=== PATIENT | male | born 1945 | race Caucasian/White ===

== ENCOUNTER 2016-12-26 08:50 | Inpatient (IN) | payer MEDICARE, OTHER ==
[2016-12-03 11:08] VITALS: BMI 37.0
--- NOTE | 2016-12-03 11:47 | PAT Medication Instructions ---
Service Date Dec 03, 2016. Current Home Medication List Acetaminophen (Tylenol), 2 TAB PO Q6 PRN for Pain or Fever Amlodipine/Benazepril (Lotrel 5MG/20MG), 1 CAP PO QAM Aspirin (Aspirin Ec), 81 MG PO QAM Atenolol (Tenormin), 50 MG PO QAM Tamsulosin Hcl (Flomax), 0.4 MG PO Q2D Medication Instructions For Your Scheduled Surgery - Hold the following medications the morning of surgery: Amlodipine/Benazepril (Lotrel 5MG/20MG), 1 CAP PO QAM - Take the following medications the morning of surgery with a sip of water OTHERWISE NOTHING TO EAT OR DRINK AFTER MIDNIGHT: Acetaminophen (Tylenol), 2 TAB PO Q6 PRN for Pain or Fever (may take if needed up to 4 hours prior to surgery) Aspirin (Aspirin Ec), 81 MG PO QAM Atenolol (Tenormin), 50 MG PO QAM Tamsulosin Hcl (Flomax), 0.4 MG PO Q2D - Take the following medications as scheduled the night before surgery: Acetaminophen (Tylenol), 2 TAB PO Q6 PRN for Pain or Fever If you have any questions please call us at [phone] or [phone] or [phone]
[2016-12-03 12:30] LABS: BASO % 0.2 %; BASO ABS # 0.01 K/uL (0-0.2); COMPLETE YES; HEMATOCRIT 40.7 % (42-52); IG% 0.4 %; LYMPH % 29.4 %; LYMPH ABS # 1.59 K/uL (1.2-3.4); MEAN CELL VOLUME 89.1 fL (80-100); MEAN CORPUSCULAR HEMOGLOBIN 32.8 pg (25-34); MEAN CORPUSCULAR HGB CONC 36.9 g/dl (32-36); MEAN PLATELET VOLUME 11.1 fL (7.4-10.4); PLATELET COUNT 120 K/uL (130-400); RED BLOOD COUNT 4.57 M/uL (4.7-6.1); WHITE BLOOD COUNT 5.41 K/uL (4.8-10.8)
[2016-12-03 12:38] LABS: URINE APPEARANCE CLEAR (CLEAR); URINE BILIRUBIN NEG (NEG); URINE COLOR DK YELLOW; URINE NITRITE NEG (NEG); URINE SPECIFIC GRAVITY 1.025 (1.000-1.030); UROBILINOGEN NEG (NEG); ZZUR CULT IF INDIC CLEAN CATCH NO
[2016-12-03 12:39] LABS: PROTHROMBIN TIME (PATIENT) 10.9 SECONDS (9.0-12.0)
[2016-12-03 12:45] LABS: ESTIMATED AVERAGE GLUCOSE 148 mg/dl; HA1C FLAG Normal (Normal)
--- NOTE | 2016-12-03 12:52 | DIAGNOSTIC IMAGING REPORT ---
TWO VIEW CHEST CLINICAL HISTORY: Preoperative examination. FINDINGS: PA and lateral chest radiographs are obtained. No prior studies are available for comparison at the time of dictation. The heart is mildly enlarged and there is atherosclerotic calcification of the thoracic aorta. The pulmonary vasculature is noncongested. Nonspecific interstitial thickening is noted. The lungs and pleural spaces are clear. There is no pneumothorax. The skeletal structures are osteopenic. Degenerative change is seen throughout the thoracic spine. IMPRESSION: No active disease in the chest. Electronically signed by: Seth Marin M.D. 12/03/2016 12:51 PM Dictated Date/Time: 12/03/2016 12:50 PM
[2016-12-03 12:53] LABS: MANUAL MICROSCOPIC REQUIRED? NO; REVIEW REQ? NO
[2016-12-03 13:41] LABS: CREATININE 0.98 mg/dl (0.60-1.40)
[2016-12-03 13:42] LABS: CALCIUM 8.8 mg/dl (8.5-10.1); POTASSIUM 3.7 mmol/L (3.5-5.1)
--- NOTE | 2016-12-25 11:44 | HISTORY & PHYSICAL EXAMINATION ---
DATE OF ADMISSION: 12/26/2016 CHIEF COMPLAINT: Right knee pain. HISTORY OF PRESENT ILLNESS: The patient is a 71-year-old male with known osteoarthritis about his right knee. He had a recent corticosteroid injection with minimal relief. Due to ongoing pain and disability, he now desires to proceed with right total knee arthroplasty. PAST MEDICAL HISTORY: Significant for hypertension, prostate cancer, kidney stones, acid reflux, obesity. PAST SURGICAL HISTORY: Lithotripsy, carpal tunnel, prostate radiation, tonsils and adenoids. MEDICATIONS: Meloxicam 15 mg daily, Flomax 0.4 mg daily, Lotrel 5/20 daily, atenolol 50 mg daily, aspirin 81 mg daily. ALLERGIES: No known drug allergies. SOCIAL HISTORY AND REVIEW OF SYSTEMS: Noncontributory. PHYSICAL EXAMINATION: GENERAL: Well-nourished, well-developed, obese male who appears his stated age. HEENT: Normocephalic, atraumatic, extraocular movements intact, oropharynx pink and moist. NECK: Supple without adenopathy. LUNGS: Clear to auscultation bilaterally. HEART: Regular rate and rhythm. ABDOMEN: Soft, nontender, nondistended, obese. EXTREMITIES: The upper extremities are within normal limits. The right knee has a slight varus alignment. He complains primarily of medial compartment pain. His range of motion is from 0-120 degrees. X-RAYS: X-rays were reviewed. He has a varus aligned knee. He has near bone on bone arthritis of the medial compartment with evidence of subchondral sclerosis. There is mild degenerative change about the patellofemoral joint. ASSESSMENT: Right knee degenerative joint disease. PLAN: Risks versus benefits were discussed. Consent was obtained. The patient's primary care physician is Dr. Corbin. We will proceed with right total knee arthroplasty upon preoperative workup and medical clearance.
[2016-12-26] VITALS (7 sets, daily range): BP systolic 142–165; BP diastolic 68–91; PULSE 69–81; TEMP 36.4–37; O2SAT 92–97; Ht 175.3 cm; Wt 114.1 kg
[~2016-12-26] VITALS: Ht 175.3 cm; Wt 114.1 kg
[2016-12-26] MEDS: ROPIVACAINE 5MG/ML 30 ML 150 MG, BUPIVACAINE/EPINEPHR 0.5% MPF 30 ML, KETOROLAC TROMETH... INFIL SCH ×14 (06:00→11:41)
--- NOTE | 2016-12-26 07:23 | History & Physical Bridge Note ---
H&P Re-Evaluation Bridge Note: I have examined the patient, reviewed the History & Physical and in the interval since the performance of the History & Physical I have noted the following changes of clinical significance: No changes noted
[~2016-12-26 08:50] MED LIST: ACET-1256 PO; ACETAMINOPHEN 500 MG TAB PO SCH; AMLO5CAP2 PO; ASPI81TA28 PO; ATEN50TA8 PO; BUPIVACAINE 0.25% 30 ML VIAL ONE; BUPIVACAINE 0.5 % 5 MG/1 ML PF 10ML VIAL ONE; CEFAZOLIN 2000 MG/60 ML D5W 60 ML IV SCH; CeleBREX 200 MG CAP PO SCH; DEXAMETHASONE 4 MG TAB PO SCH; EpINEphrine INJ 1MG/ML AMP 1 MG/ML AMP ONE; FAMOTIDINE 20 MG TAB PO SCH; FENTANYL CITRATE INJ 50 MCG/1 ML 2 ML VIAL ONE; GABAPENTIN 300 MG CAP PO SCH; LACTATED RINGER'S 1000ML 1,000 ML IV SCH; LACTATED RINGER'S 1000ML 500 ML IV SCH; METOCLOPRAMIDE HCL 10 MG TAB PO SCH; MIDAZOLAM HCL 1 MG/ML 2ML VIAL ONE; TAMS0.4C38 PO
[2016-12-26] MEDS: TRANEXAMIC ACID INJ 1,000 MG in SODIUM CHLORIDE 0.9% 100ML 100 ML IV SCH ×2 (09:46→09:50)
[2016-12-26] MEDS ORDERED: ORTHO JOINT ANESTHETIC ONE (09:51)
[2016-12-26] MEDS ORDERED: POVIDONE-IODINE OP SOLN 30 ML BTL ONE (09:51)
[2016-12-26] MEDS ORDERED: BACITRACIN 50000 UNIT VIAL ONE (09:52)
[2016-12-26] MEDS ORDERED: EpHEDrine SULFATE INJ 50 MG/ML AMP IV PRN (10:15)
[2016-12-26] MEDS ORDERED: LABETALOL HCL IV 5 MG/ML 20ML IV PRN (10:15)
[2016-12-26] MEDS ORDERED: HYDROmorphone INJ 2 MG/ML SYR/VIAL IV PRN (10:15)
[2016-12-26] MEDS ORDERED: MEPERIDINE HCL 25 MG/ML CARP IV PRN (10:15)
[2016-12-26] MEDS ORDERED: ATROPINE SULFATE 0.1 MG/ML 5ML SYR IV PRN (10:15)
[2016-12-26] MEDS ORDERED: PHENYLEPHRINE 100MCG/ML 5ML SYR IV PRN (10:15)
[2016-12-26] MEDS ORDERED: ONDANSETRON INJ 2 MG/ML 2 ML VIAL IV PRN ×2 (10:15→12:15)
[2016-12-26] MEDS ORDERED: FLUMAZENIL 0.1 MG/1 ML 10 ML VIAL IV PRN (10:15)
[2016-12-26] MEDS ORDERED: NALOXONE HCL 0.4 MG/1 ML VIAL/CARP IV PRN (10:15)
[2016-12-26] MEDS ORDERED: FENTANYL CITRATE INJ 50 MCG/1 ML 2 ML VIAL IV PRN (10:15)
[2016-12-26] MEDS ORDERED: MIDAZOLAM HCL 1 MG/ML 2ML VIAL ONE (10:36)
[2016-12-26] MEDS ORDERED: KETAMINE HCL INJ 50 MG/ML 10 ML VIAL ONE (10:41)
[2016-12-26] MEDS ORDERED: LIDOCAINE HCL 2% 2 ML VIAL (20MG/ML) ONE (11:09)
[2016-12-26] MEDS ORDERED: PROPOFOL IV EMULSION 10 MG/ML 20 ML VIAL IV ONE (11:09)
--- NOTE | 2016-12-26 11:29 | [facility] Post Operative Brief Note ---
Immediate Operative Summary Operative Date Dec 26, 2016. Pre-Operative Diagnosis Right knee degenerative joint disease Post-Operative Diagnosis Right knee degenerative joint disease Procedure(s) Performed Right Total Knee Arthroplasty Surgeon Dr. Salazar Defensive Driving Instructor Surgeon(s) Elijah Charles PA-C Estimated Blood Loss 20cc Findings severe oa Specimens A: right knee bone and tissue Complication(s) None Disposition Recovery Room / PACU
[2016-12-26] MEDS ORDERED: ALUMINUM/MAGNESIUM/SIMETH (MAALOX MAX) 30 ML UDC PO PRN (12:15)
[2016-12-26] MEDS ORDERED: MoRPHine SULFATE 4 MG/ML 1 ML CARP\\VIAL IV PRN (12:15)
[2016-12-26] MEDS ORDERED: MoRPHine SULFATE 2 MG/ML CARP IV PRN (12:15)
[2016-12-26] MEDS ORDERED: BISACODYL 10 MG SUPP PR PRN (12:15)
--- NOTE | 2016-12-26 12:30 | OPERATIVE REPORT ---
DATE OF OPERATION: 12/26/2016 PREOPERATIVE DIAGNOSIS: Osteoarthritis, right knee. POSTOPERATIVE DIAGNOSIS: Osteoarthritis, right knee. PROCEDURE: Right total knee arthroplasty. SURGEON: Dr. Salazar. CENTRAL STERILIZATION TECHNICIAN: OWEN Pompa ANESTHESIA: Spinal. COMPLICATIONS: None. IMPLANTS USED: Femoral size 5, tibia size 4, tibial poly 13, and patella size 36. OPERATION AND FINDINGS: Following induction of spinal anesthesia, the patient's right leg was prepped and draped in the usual sterile manner. Limb was exsanguinated with an Esmarch bandage and tourniquet was inflated to 350 mmHg. A longitudinal incision was made anteriorly. Subcutaneous tissue was sharply dissected. Electrocautery was used for hemostasis. Prepatellar bursa was incised and median parapatellar incision was performed. Patella was everted and the knee was flexed. Fat pad was removed to aid in visualization and the anterior and posterior cruciate ligaments were removed. The medial face of the tibia was cleared of soft tissue first with a Bovie and a Real elevator. This tissue was retracted posteriorly using a blunt Hohmann. A Poole retractor was used to expose the synovium above on the anterior aspect of the femur and this was removed down to bone. The PSI guide was placed on the distal femur and two pins were placed anteriorly and kept in position and two additional pins were placed distally and removed. The distal femoral cutting block was placed in position and the distal femoral cut was used in the +0 setting. Next, the cutting block was removed and the femoral 5 block was placed in the distal end of the femur. Care was taken to ensure appropriate external rotation and feeler gauge was used to ensure no notching would occur. The femoral block was centered on the distal femur and in the medial and lateral direction and was fixed using two bone screws. The gold pins were then removed. The oscillating saw was used to create the bone cuts and the distal femoral cutting block was removed and the reciprocating saw was used to further trim the femoral cuts as well as a deep in the area for the trochlear groove. Next, posterior condyle remnants were removed. Following this, a meniscal clamp and knife were utilized to remove the anterior portion of both medial and lateral meniscus. The proximal tibia PSI guide was placed into position and the proximal tibial cutting guide was screwed into position. The extra medullary alignment guide was utilized to ensure appropriate alignment. The proximal tibia was cut and the proximal tibial cutting block was removed and this bone fragment was removed. The appropriate guide was used to perform the notch cut on the distal femur and a lamina media relations coordinator and a cochlear knife were utilized to finish both medial and lateral meniscectomies to remove any remnants of the posterior or anterior cruciate ligaments. Following this, the distal femoral component was impacted into position and blunt Alexis was used to sublux the tibia anteriorly. The proximal tibia was sized and a 4 tibial tray was chosen as the size to be used. This was put into position and appropriate external rotation and a double check with extramedullary alignment guide was performed. The canal for the tibial stem was prepared first with a 17 mm drill and then the punch and a mallet and the trial tibial poly was placed. A 13 was chosen the size to be used. It was brought to extension and the patella was prepared with the patellar reamer. A 36 component was chosen the size to be used. The trial component was placed and knee was taken through a full range of motion and there was found to be no lateral subluxation of the tibia. No lateral release was required. The trials were all removed. The final components were obtained and assembled. Cement was mixed. The knee was thoroughly irrigated and the ortho mix was injected about the knee joint. The final components were cemented into position. After thoroughly suctioning and drying the bone ends, all excess cement was removed. The knee was held in extension while the cement hardened. The wound was irrigated and closed over a Hemovac drain. #1 Vicryl was used to close the extensor mechanism. Subcutaneous tissues closed using 0 Dexon. Skin was closed with pranav. Sterile dressing of Adaptic, 4 x 4's, sterile Webril, and Carlos was applied. The patient tolerated the procedure well. Due to the complex nature of the procedure, the entire surgery was performed with the operational assistance of OWEN Pompa. The assistant hvac mechanic, under direct supervision, was involved in the actual performance of all aspects of the surgical procedure including hemostasis, tissue retraction and incision, instrument management, patient positioning, and wound closure. DISPOSITION: Recovery room stable. I attest to the content of the Intraoperative Record and any orders documented therein. Any exception s are noted below.
--- NOTE | 2016-12-26 12:49 | DIAGNOSTIC IMAGING REPORT ---
RIGHT KNEE 1 OR 2 VIEWS ROUTINE CLINICAL HISTORY: 71 years-old Male presenting with right knee osteoarthritis status post total knee arthroplasty. TECHNIQUE: Frontal and lateral views of the right knee were obtained. COMPARISON: None. FINDINGS: Postsurgical changes of total right knee arthroplasty with patellar resurfacing. Soft tissue and intra-articular emphysema. Surgical drain is in place. No malalignment. No acute fracture. No hardware complication. IMPRESSION: Expected postsurgical changes status post total right knee arthroplasty with patellar resurfacing. Electronically signed by: Nuno Sheppard M.D. 12/26/2016 12:48 PM Dictated Date/Time: 12/26/2016 12:47 PM
--- NOTE | 2016-12-26 12:52 | Anesthesiology Progress Note ---
Anesthesia Post Op Note Date & Time Dec 26, 2016 at 12:50 Vital Signs Pain Intensity: 0 Vital Signs Past 12 Hours Date Time Temp Pulse Resp B/P (MAP) Pulse Ox O2 Delivery O2 Flow Rate FiO2 12/26/16 12:45 71 16 125/74 95 Nasal Cannula 4 12/26/16 12:35 36.2 69 17 136/80 95 Nasal Cannula 4 12/26/16 12:25 67 22 132/80 91 Nasal Cannula 2 12/26/16 12:15 72 17 131/76 91 Nasal Cannula 2 12/26/16 12:05 36.1 78 17 139/78 91 Nasal Cannula 2 12/26/16 09:29 36.5 71 20 162/91 94 Room Air Notes Mental Status: alert / awake / arousable, participated in evaluation Pt Amnestic to Procedure: Yes Nausea / Vomiting: adequately controlled Pain: adequately controlled Airway Patency, RR, SpO2: stable & adequate BP & HR: stable & adequate Hydration State: stable & adequate Neuraxial Anesthesia: was administered, sensory block is resolving Anesthetic Complications: no major complications apparent The patient was a difficult spinal placement and required two attempts. I spoke to him about the slightly increased risk of spinal hematoma in the PACU. I told him to watch for any new numbness, weakness, or incontinence after today and to tell a nurse or go to the ER if any of these symptoms develop.
[2016-12-26] MEDS: D5W AND 1/2NSS + 20MEQ KCL 1,000 ML IV SCH (15:32)
[2016-12-26] MEDS: ACETAMINOPHEN 500 MG TAB PO SCH ×2 (16:17→21:32)
[2016-12-26] MEDS: CEFAZOLIN IV 2,000 MG in DEXTROSE 5% 50ML 50 ML IV SCH (18:35)
[2016-12-26] MEDS: FERROUS GLUCONATE 324 MG TAB PO SCH (18:35)
[2016-12-26] MEDS: OXYCODONE HCL IR 5 MG TAB (IMMEDIATE RELEASE) PO PRN (18:56)
[2016-12-26] MEDS: CeleBREX 200 MG CAP PO SCH (20:35)
[2016-12-26] MEDS: ASPIRIN 81 MG ECTAB PO SCH (20:35)
[2016-12-26] MEDS: DOCUSATE SODIUM 100 MG CAP PO SCH (20:35)
[2016-12-26] MEDS: OXYCODONE HCL 10 MG TABCR (OXYCONTIN) PO SCH (20:36)
[2016-12-27] MEDS: OXYCODONE HCL IR 5 MG TAB (IMMEDIATE RELEASE) PO PRN ×2 (00:20→07:32)
[2016-12-27] MEDS: D5W AND 1/2NSS + 20MEQ KCL 1,000 ML IV SCH ×2 (00:29→10:40)
[2016-12-27] MEDS: CEFAZOLIN IV 2,000 MG in DEXTROSE 5% 50ML 50 ML IV SCH (01:30)
[2016-12-27 03:50] VITALS: BP 144/71; PULSE 67; TEMP 36.5; O2SAT 90
[2016-12-27] MEDS: ACETAMINOPHEN 500 MG TAB PO SCH ×3 (05:38→21:29)
[2016-12-27 06:03] LABS: HEMATOCRIT 39.7 % (42-52); MEAN CELL VOLUME 90.8 fL (80-100); MEAN CORPUSCULAR HEMOGLOBIN 31.6 pg (25-34); MEAN CORPUSCULAR HGB CONC 34.8 g/dl (32-36); MEAN PLATELET VOLUME 11.8 fL (7.4-10.4); PLATELET COUNT 152 K/uL (130-400); RED BLOOD COUNT 4.37 M/uL (4.7-6.1); WHITE BLOOD COUNT 14.31 K/uL (4.8-10.8)
[2016-12-27 06:51] LABS: BUN/CREATININE RATIO 16.6 (10-20); CALCIUM 8.6 mg/dl (8.5-10.1); CREATININE 1.4 mg/dl (0.60-1.40); POTASSIUM 4.3 mmol/L (3.5-5.1)
[2016-12-27 08:12] VITALS: BP 170/91; PULSE 70; TEMP 36.7; O2SAT 93
[2016-12-27] MEDS: CeleBREX 200 MG CAP PO SCH ×2 (08:45→20:27)
[2016-12-27] MEDS: OXYCODONE HCL 10 MG TABCR (OXYCONTIN) PO SCH ×2 (08:45→20:26)
[2016-12-27] MEDS: ASPIRIN 81 MG ECTAB PO SCH ×2 (08:46→20:26)
[2016-12-27] MEDS: AMLODIPINE BESYLATE 5 MG TAB PO SCH (08:46)
[2016-12-27] MEDS: TAMSULOSIN HCL 0.4 MG CAP PO SCH (08:46)
[2016-12-27] MEDS: DOCUSATE SODIUM 100 MG CAP PO SCH ×2 (08:46→20:26)
[2016-12-27] MEDS: MULTIVITAMIN TAB PO SCH (08:46)
[2016-12-27] MEDS: PANTOprazole SOD 40 MG TAB PO SCH (08:46)
[2016-12-27] MEDS: BENAZEPRIL HCL 10 MG TAB PO SCH (08:46)
[2016-12-27] MEDS: FERROUS GLUCONATE 324 MG TAB PO SCH ×3 (08:47→17:45)
--- NOTE | 2016-12-27 08:54 | Orthopedic Progress Note ---
Orthopedic Progress Note Date of Service Dec 27, 2016. Subjective Post OP Day: 1 Reports: feeling well, Denies: chest pain, SOB, nausea / vomiting, light headedness Objective calves soft nontender, N/V intact, dressing C/D/I, A&O x3, toes mobile Date Time Temp Pulse Resp B/P (MAP) Pulse Ox O2 Delivery O2 Flow Rate FiO2 12/27/16 08:12 36.7 70 18 170/91 (117) 93 Room Air 12/27/16 07:37 Room Air 12/27/16 03:50 36.5 67 17 144/71 (95) 90 Room Air 12/27/16 00:30 Room Air 12/26/16 23:13 37.0 75 17 142/73 (96) 92 Room Air 12/26/16 20:37 36.6 76 18 146/68 (94) 92 Room Air 12/26/16 17:15 36.6 78 16 143/78 (99) 95 Nasal Cannula 2.0 12/26/16 16:15 36.5 81 18 165/82 (109) 96 Nasal Cannula 2.0 12/26/16 15:30 Nasal Cannula 2.0 12/26/16 15:15 36.5 81 18 160/81 (107) 97 Nasal Cannula 2.0 12/26/16 14:15 94 Nasal Cannula 4.0 12/26/16 14:15 36.4 69 16 153/84 (107) 94 Nasal Cannula 4.0 12/26/16 14:00 74 19 130/82 95 Nasal Cannula 4 12/26/16 13:45 71 18 134/70 96 Nasal Cannula 4 12/26/16 13:30 66 21 139/79 96 Nasal Cannula 4 12/26/16 13:15 66 23 138/77 96 Nasal Cannula 4 12/26/16 13:00 70 18 138/83 94 Nasal Cannula 4 12/26/16 12:45 71 16 125/74 95 Nasal Cannula 4 12/26/16 12:35 36.2 69 17 136/80 95 Nasal Cannula 4 12/26/16 12:25 67 22 132/80 91 Nasal Cannula 2 12/26/16 12:15 72 17 131/76 91 Nasal Cannula 2 12/26/16 12:05 36.1 78 17 139/78 91 Nasal Cannula 2 12/26/16 09:29 36.5 71 20 162/91 94 Room Air Laboratory Results 24 Hours: Test 12/27/16 05:40 Hematocrit 39.7 % Hemoglobin 13.8 g/dL Assessment & Plan Assessment: POD 1 s/p Right TKA Plan: PT/OT Pt hoping to go to [facility] upon dc if ok with insurance. Inhouse Planning Pain Management: Celebrex, Oxycontin, Morphine, Oxy IR DVT Prophylaxis: TEDs, SCDs, ASA Discharge Planning Discharge Planning: rehab hospital
[2016-12-27] MEDS ORDERED: AMLODIPINE PO SCH (09:00)
[2016-12-27] MEDS ORDERED: BENAZEPRIL PO SCH (09:00)
[2016-12-27 12:00] VITALS: BP 145/79; PULSE 58; TEMP 36.9; O2SAT 91
--- NOTE | 2016-12-27 13:36 | Anesthesiology Progress Note ---
Anesthesia Post Op Note Date & Time Dec 27, 2016 at 13:36 Vital Signs Pain Intensity: 6.5 Vital Signs Past 12 Hours Date Time Temp Pulse Resp B/P (MAP) Pulse Ox O2 Delivery O2 Flow Rate FiO2 12/27/16 12:00 36.9 58 17 145/79 (101) 91 Room Air 12/27/16 08:12 36.7 70 18 170/91 (117) 93 Room Air 12/27/16 07:37 Room Air 12/27/16 03:50 36.5 67 17 144/71 (95) 90 Room Air Notes Mental Status: alert / awake / arousable, participated in evaluation Pt Amnestic to Procedure: Yes Nausea / Vomiting: adequately controlled Pain: adequately controlled Airway Patency, RR, SpO2: stable & adequate BP & HR: stable & adequate Hydration State: stable & adequate Neuraxial Anesthesia: was administered, sensory block resolved Anesthetic Complications: no major complications apparent
[2016-12-27 13:54] VITALS: BP 162/85; PULSE 57; TEMP 36.4; O2SAT 95
[2016-12-27 16:20] VITALS: BP 142/76; PULSE 54; TEMP 36.5; O2SAT 93
[2016-12-27] MEDS: MAGNESIUM HYDROXIDE SUSP 30 ML UDC PO PRN (21:30)
[2016-12-27 23:18] VITALS: BP 132/69; PULSE 61; TEMP 36.9; O2SAT 90
[2016-12-28 00:25] VITALS: O2SAT 96
[2016-12-28] MEDS: ACETAMINOPHEN 500 MG TAB PO SCH ×3 (05:11→21:53)
[2016-12-28 06:33] VITALS: BP 148/75; PULSE 66; TEMP 36.9; O2SAT 90
[2016-12-28] MEDS: OXYCODONE HCL 10 MG TABCR (OXYCONTIN) PO SCH ×2 (07:28→21:04)
[2016-12-28] MEDS: OXYCODONE HCL IR 5 MG TAB (IMMEDIATE RELEASE) PO PRN (07:28)
[2016-12-28] MEDS: MULTIVITAMIN TAB PO SCH (07:29)
[2016-12-28] MEDS: FERROUS GLUCONATE 324 MG TAB PO SCH ×3 (07:29→18:09)
[2016-12-28] MEDS: BENAZEPRIL HCL 10 MG TAB PO SCH (07:29)
[2016-12-28] MEDS: PANTOprazole SOD 40 MG TAB PO SCH (07:29)
[2016-12-28] MEDS: AMLODIPINE BESYLATE 5 MG TAB PO SCH (07:29)
--- NOTE | 2016-12-28 08:49 | Orthopedic Progress Note ---
Orthopedic Progress Note Date of Service Dec 28, 2016. Subjective Post OP Day: 2 Reports: feeling well, Denies: complaints Additional Notes: Doing well this morning, no acute issues overnight. Pain well controlled. Objective AOx3, NAD RLE NVSI +EHL/FHL/TA/GS SILT grossly, CR< 2 seconds +2 DP pulse, compartments soft, dressing CDI Date Time Temp Pulse Resp B/P (MAP) Pulse Ox O2 Delivery O2 Flow Rate FiO2 12/28/16 07:43 Room Air 12/28/16 06:33 36.9 66 16 148/75 (99) 90 Room Air 12/28/16 00:25 96 Room Air 12/27/16 23:18 36.9 61 16 132/69 (90) 90 Room Air 12/27/16 19:40 Room Air 12/27/16 16:20 36.5 54 17 142/76 (98) 93 Room Air 12/27/16 13:54 36.4 57 16 162/85 (110) 95 Room Air 12/27/16 12:00 36.9 58 17 145/79 (101) 91 Room Air Assessment & Plan Assessment: POD 2 s/p Right TKA Plan: WBAT RLE Pain controlled DVT PPX PT/OT Pt hoping to go to [facility] upon dc if ok with insurance. Am Labs Inhouse Planning Pain Management: Celebrex, Oxycontin, Morphine, Oxy IR DVT Prophylaxis: TEDs, SCDs, ASA Discharge Planning Discharge Planning: rehab hospital
[2016-12-28] MEDS: CeleBREX 200 MG CAP PO SCH ×2 (08:52→21:05)
[2016-12-28] MEDS: ASPIRIN 81 MG ECTAB PO SCH ×2 (08:52→21:05)
[2016-12-28] MEDS: DOCUSATE SODIUM 100 MG CAP PO SCH ×2 (08:52→21:06)
[2016-12-28] MEDS ORDERED: CLB200 PO (10:10)
[2016-12-28] MEDS ORDERED: OXYSR10 PO (10:10)
[2016-12-28] MEDS ORDERED: ONDA8TAB6 PO (10:10)
[2016-12-28] MEDS ORDERED: RXC5 PO (10:10)
[2016-12-28] MEDS ORDERED: ASPEC81 PO (10:10)
[2016-12-28] MEDS ORDERED: ACET-24 PO (10:10)
--- NOTE | 2016-12-28 10:12 | Discharge Instructions ---
Discharge Instructions Date of Service Dec 28, 2016. Admission Reason for Admission: Right Knee Osteoarthritis Discharge Discharge Diagnosis / Problem: right knee osteoarthritis Discharge Goals Goal(s): Decrease discomfort, Improve function Activity Recommendations Activity Level: Up Ad Daria Therapies: Physical Therapy, Occupational Therapy Weightbearing Status: Right weightbearing (as tolerated) Shower/Bathe: no limitations Additional Information Patient informed of condition: Yes Advance Directives: Yes DNR: No Level of Care: Acute Rehab Communicable Disease: No Prognosis: Stable Ricci Catheter: No Instructions / Follow-Up Instructions / Follow-Up ACTIVITY RECOMMENDATIONS: SELF CARE INSTRUCTIONS AFTER TOTAL KNEE REPLACEMENT A. You may need to continue a physical therapy program after discharge from the hospital. There are several options available to you. Your doctor will assist you in selecting the best one for you. 1. An out-patient facility 3 times a week for therapy. 2. Home therapy for 1 to 2 weeks with outpatient therapy to follow. 3. Continue working on all exercises taught by physical therapy three times a day for 20 minutes on non-therapy days. Your goals should be to increase the bending of your knee to 90 degrees and beyond and to fully straighten your knee. Ice and elevate knee after exercise. B. Weight as tolerated with a walker or as instructed by your physician. C. It is okay to shower if minimal to no drainage from incision. No Baths. Do not soak wound. D. Make walking a part of your daily routine. Be up as much as comfortable with rest periods throughout the day. Rest with leg elevation is very important. Use the ice wrap frequently for the first 3-4 weeks. E. There are no restrictions on activities. You may ride in a car, shop, participate in commissioning manager and all social activities. F. Wear the long elastic stockings (MOIRA hose) 20 hours a day for one month after surgery. They can be removed several times a day for laundering and when showering. G. Silverlon- This is a large adhesive bandage that contains silver ions. This helps your incision heal by fighting off bacteria and protecting it from the outside environment. You are permitted to shower with this dressing. This will remain on your incision for 7 days and then should be removed. Some visible blood or drainage through the dressing window is normal. If there is significant drainage or leaking noted before the 7 days notify your doctor's office immediately. Once removed, keep incision clean and dry. If there is any drainage or redness noted, please call your surgeon. SPECIAL CARE INSTRUCTIONS: VERY IMPORTANT TO READ AND REVIEW A. Take Aspirin (blood thinning medications) as directed by your doctor. If on Coumadin, have a pro-time (blood test) drawn according to your doctor's instructions. This will tell the doctor how well the Coumadin is thinning your blood. B. There are a few signs you need to watch for after you are home. Call [facility] if you notice any of the followin. Increased severe knee pain. Some pain is expected especially when you exercise. 2. Increased swelling in your leg or knee; pain or swelling of the calf muscle in either lower leg. 3. Any redness or fluid drainage from the incision. 4. Shortness of breath or chest pain. 5. A Temperature of 101 degrees F or greater. C. Please call [facility] at if you have any concerns or questions about your operation or recovery. The doctor or his nurse will return your call promptly. D. You must take antibiotics before dental work, bladder, bowel or other surgery. Your doctor will provide you with a permanent care to carry describing this precaution. FOLLOW UP VISIT: If appointment is not already scheduled: Please call [facility] to make a follow-up appointment for one month after your surgery at . . Current Hospital Diet Patient's current hospital diet: Regular Diet Discharge Diet Recommended Diet: Regular Diet Procedures Procedures Performed: Right Total Knee Arthroplasty Pending Studies Studies pending at discharge: no Laboratory Results Hemoglobin A1c Test 12/03/16 11:55 Range/Units Estimated Average Glucose 148 mg/dl Hemoglobin A1c 6.8 H 4.5-5.6 % Medical Emergencies . Who to Call and When: Medical Emergencies: If at any time you feel your situation is an emergency, please call 911 immediately. . Non-Emergent Contact Non-Emergency issues call your: Surgeon Call Non-Emergent contact if: temperature is above 101, your pain is not controlled, your pain is worsening, wound has increased drainage, wound has increased redness, wound has increased pain . . "Provider Documentation" section prepared by Drew Rasmussen. . Core Measure Problem Core Measures: None
[2016-12-28] MEDS: MAGNESIUM HYDROXIDE SUSP 30 ML UDC PO PRN ×2 (13:21→21:04)
[2016-12-28 15:00] VITALS: BP 116/66; PULSE 55; TEMP 36.3; O2SAT 93
[2016-12-28 23:37] VITALS: BP 153/76; PULSE 67; TEMP 37.1; O2SAT 93
[2016-12-29] MEDS: ACETAMINOPHEN 500 MG TAB PO SCH (05:29)
[2016-12-29 06:52] VITALS: BP 162/71; PULSE 77; TEMP 36.8; O2SAT 92
--- NOTE | 2016-12-29 08:43 | Orthopedic Progress Note ---
Orthopedic Progress Note Date of Service Dec 29, 2016. Subjective Post OP Day: 3 Reports: feeling well, pain controlled w PO medications, Denies: complaints, calf pain Objective calves soft nontender, N/V intact, capillary refill less than 2 sec., dressing C /D/I, A&O x3, toes mobile Date Time Temp Pulse Resp B/P (MAP) Pulse Ox O2 Delivery O2 Flow Rate FiO2 12/29/16 06:52 36.8 77 18 162/71 (101) 92 Room Air 12/29/16 00:05 Room Air 12/28/16 23:37 37.1 67 17 153/76 (101) 93 Room Air 12/28/16 15:43 Room Air 12/28/16 15:00 36.3 55 16 116/66 (83) 93 Room Air Assessment & Plan Assessment: POD 3 s/p Right TKA Plan: WBAT RLE Pain controlled DVT PPX PT/OT Insurance denial of any rehab stay. Will d/c home with home health today. Inhouse Planning Pain Management: Celebrex, Oxycontin, Morphine, Oxy IR DVT Prophylaxis: TEDs, SCDs, ASA Discharge Planning Discharge Planning: home with home health
[2016-12-29] MEDS: OXYCODONE HCL 10 MG TABCR (OXYCONTIN) PO SCH (08:54)
[2016-12-29] MEDS: OXYCODONE HCL IR 5 MG TAB (IMMEDIATE RELEASE) PO PRN (08:56)
[2016-12-29] MEDS: AMLODIPINE BESYLATE 5 MG TAB PO SCH (08:56)
[2016-12-29] MEDS: MULTIVITAMIN TAB PO SCH (08:56)
[2016-12-29] MEDS: ASPIRIN 81 MG ECTAB PO SCH (08:56)
[2016-12-29] MEDS: PANTOprazole SOD 40 MG TAB PO SCH (08:56)
[2016-12-29] MEDS: FERROUS GLUCONATE 324 MG TAB PO SCH (08:57)
[2016-12-29] MEDS: BENAZEPRIL HCL 10 MG TAB PO SCH (08:57)
[2016-12-29] MEDS: CeleBREX 200 MG CAP PO SCH (08:57)
[2016-12-29] MEDS: TAMSULOSIN HCL 0.4 MG CAP PO SCH (08:57)
[2016-12-29] MEDS: DOCUSATE SODIUM 100 MG CAP PO SCH (08:57)
[2016-12-29 10:20] VITALS: BP 162/71; PULSE 77; TEMP 36.8; O2SAT 92
--- NOTE | 2016-12-30 17:23 | DISCHARGE SUMMARY ---
DISCHARGE DIAGNOSIS: Degenerative joint disease, right knee. SECONDARY DIAGNOSES: Hypertension, history of prostate carcinoma, history of renal calculi, gastroesophageal reflux disease and obesity. CONSULTS: None. COMPLICATIONS: None. PROCEDURES: Right total knee arthroplasty performed by Dr. Salazar on 12/26/2016. BRIEF HISTORY: As dictated in history and physical. HOSPITAL SUMMARY: The patient was admitted on the above-noted date and had the above-noted surgery performed which he tolerated well. On his first postoperative day, he was feeling well and had no complaints. Calves were soft, nontender, neurovascularly intact. Dressings were clean, dry and intact. Toes were mobile. Hemoglobin was 13.8 and he was started on physical therapy protocol and continued on DVT prophylaxis and pain management. By his second postoperative day, he was feeling well and had no complaints. He had no acute issues overnight. Pain was controlled. Dressings were clean, dry and intact. He was neurovascularly intact. Vital signs were stable. He was continued on his protocol. The rest of his stay was essentially uneventful and by December 29, he was progressing with his physical therapy and it was felt he could be discharged to home with home health services. For further review, please see chart. LABORATORY AND X-RAY DATA: As per chart. DISCHARGE INSTRUCTIONS: The patient was discharged to home in satisfactory condition on 12/29/2016. DIET: Regular. ACTIVITY: Weightbearing as tolerated right lower extremity. Follow TK instruction sheets and special care instructions as noted. Follow up with Dr. Salazar in 2 weeks. The patient to call for appointment if one has not been made for you. DISCHARGE MEDICATIONS: Acetaminophen 1000 mg p.o. q. 8 hours, aspirin 81 mg p.o. b.i.d. for 30 days, Celebrex 200 mg p.o. b.i.d., Zofran 8 mg p.o. 8 hours p.r.n. nausea, OxyContin 10 mg p.o. q. 12 hours, oxycodone 5-10 mg p.o. q. 4 hours p.r.n. and resume home meds as listed and stop taking previous Tylenol and aspirin dosages.
== END 2016-12-29 12:42 | disposition home health service (06) | DRG 470 ==
LOC: C.ACU 08:50 → C.3E 09:45 → ENRESERV 13:49
PROC: 0SRC0J9 Replacement of Right Knee Joint with Synthetic Substitute, Cemented, Open Approach (ICD-10-PCS; principal; 2016-12-26 10:00)
DX: M17.11 Unilateral primary osteoarthritis, right knee (principal); I10 Essential (primary) hypertension; K21.9 Gastro-esophageal reflux disease without esophagitis; E66.9 Obesity, unspecified; Z68.37 Body mass index [BMI] 37.0-37.9, adult; Z85.46 Personal history of malignant neoplasm of prostate; Z92.3 Personal history of irradiation; Z87.442 Personal history of urinary calculi; Z79.1 Long term (current) use of non-steroidal anti-inflammatories (NSAID); Z79.82 Long term (current) use of aspirin; Z79.899 Other long term (current) drug therapy